=== PATIENT | male | born 1950 | race Caucasian/White ===

== ENCOUNTER 2017-03-01 09:45 | Emergency (ER) | payer OTHER ==
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
[2017-03-01] MEDS ORDERED: fentaNYL 100 MCG/2 ML INJ IVP ONE (10:00)
[2017-03-01] MEDS ORDERED: ONDANSETRON 4 MG/2 ML VIAL IVP ONE (10:00)
[2017-03-01 10:14] LABS: PLATELET COUNT 154 10^3/uL (150-400)
[2017-03-01] MEDS ORDERED: NS 1,000 ML IV ONE (10:49)
[2017-03-01] MEDS ORDERED: KETOROLAC 30 MG/1 ML SDV ONE (11:15)
[2017-03-01] MEDS ORDERED: KETOROLAC 30 MG/1 ML SDV IM ONE (11:17)
[2017-03-01 11:28] VITALS: O2SAT 92
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
--- NOTE | 2017-03-01 12:12 | GOP ---
[f rep st] OPERATIVE REPORT DATE OF OPERATION: 03/01/2017 SURGEON: Memo Reece MD ANESTHESIA: Local. PREOPERATIVE DIAGNOSIS: Left pneumothorax. POSTOPERATIVE DIAGNOSIS: Left pneumothorax. PROCEDURE PERFORMED: Left percutaneous tube thoracostomy. DESCRIPTION OF PROCEDURE: The left chest was infiltrated with 1% lidocaine around the 2nd intercostal space, midclavicular line. A small skin chantal was created. The Arrow percutaneous thoracostomy tube was inserted over the rib edge, directly into the thoracic cavity, as noted by bubbling within the syringe. The catheter was slid to its hub and secured with a silk suture. A sterile dressing was applied. There was rhythmical respiration with a small air leak present within the Heimlich valve under water bubble test. Portable chest x-ray was obtained shortly thereafter. No immediate complications occurred. /[id number]/MODL MTDD
[2017-03-01 12:22] VITALS: BP 121/76; PULSE 63; RESP 20; TEMP 97.5
== END 2017-03-01 12:22 | disposition home or self-care (01) ==
PROC: 0W9B00Z Drainage of Left Pleural Cavity with Drainage Device, Open Approach (ICD-10-PCS; principal; 2017-03-01)
PROC: 3E0337Z Introduction of Electrolytic and Water Balance Substance into Peripheral Vein, Percutaneous Approach (ICD-10-PCS; 2017-03-01)
DX: S27.0XXA Traumatic pneumothorax, initial encounter (principal); V18.4XXA Pedal cycle driver injured in noncollision transport accident in traffic accident, initial encounter; Y92.410 Unspecified street and highway as the place of occurrence of the external cause; Y99.8 Other external cause status
CPT/HCPCS: 96374; J1885; J2405; J3010

== ENCOUNTER → 2017-03-04 | Outpatient (CLI) | payer OTHER | LOC: FIMAGING 11:15 | PROVIDERS: ATTEND Surgery | DX: Z98.890 Other specified postprocedural states (principal); J93.9 Pneumothorax, unspecified; J98.11 Atelectasis ==